=== PATIENT | male | born 1955 | race American Indian/Alaskan Native ===

== ENCOUNTER 2018-11-10 14:15 | Emergency (ER) | payer OTHER ==
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
--- NOTE | 2018-11-10 16:59 | XRay Report ---
PROCEDURE: XR SPINE CERVICAL 2-3V TECHNIQUE: Frontal, lateral, odontoid views cervical spine HISTORY: posterior neck pain COMPARISONS: None FINDINGS: There is straightening of the normal lordotic curve of the cervical spine. The vertebral heights are maintained. There is loss of height of the disc spaces throughout the cervical spine with relative sparing of the C7-T1 disc. There is multiple level uncovertebral degenerative change. There is no evidence of fracture or subluxation. The paraspinous soft tissues are unremarkable. IMPRESSION: 1. Cervical spondylosis with multiple level degenerative disc change. 2. No plain film evidence of fracture or subluxation. However, cervical spine fractures can be missed with plain film imaging. If there is a clinical concern for fracture, CT imaging would be helpful. 3. Straightening of the normal lordotic curve of the cervical spine. This can be seen with muscle spa sm. This document is electronically signed by Marcelle Strauss MD., November 10 2018 04:57:42 PM ET
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
[2018-11-10 17:35] VITALS: BP 158/72
== END 2018-11-10 17:35 | disposition home or self-care (01) ==
LOC: ED 14:15
DX: S16.1XXA Strain of muscle, fascia and tendon at neck level, initial encounter (principal); M25.551 Pain in right hip; F17.200 Nicotine dependence, unspecified, uncomplicated; V49.49XA Driver injured in collision with other motor vehicles in traffic accident, initial encounter; Y93.89 Activity, other specified; Y92.488 Other paved roadways as the place of occurrence of the external cause; Y99.8 Other external cause status
CPT/HCPCS: 72040